=== PATIENT | male | born 2000 | race Hispanic/Latino ===

== ENCOUNTER 2022-02-22 19:41 | Emergency (ER) | payer OTHER ==
[~2022-02-22] VITALS: Ht 188 cm; Wt 79.4 kg
[2022-02-22 20:13] VITALS: BP 126/79
[2022-02-22] MEDS ORDERED: AMOX875T2 PO (20:28)
[2022-02-23] MEDS ORDERED: IBUP-2077 PO (22:55)
== END 2022-02-22 20:42 | disposition home or self-care (01) ==
LOC: EDH 19:41
DX: L02.214 Cutaneous abscess of groin (principal); I88.9 Nonspecific lymphadenitis, unspecified; F20.9 Schizophrenia, unspecified; F41.9 Anxiety disorder, unspecified

== ENCOUNTER 2022-02-23 21:21 | Emergency (ER) | payer OTHER ==
[~2022-02-23] VITALS: Ht 190.5 cm; Wt 79.4 kg
[~2022-02-23 21:21] MED LIST: AMOX875T2 PO
[2022-02-23 21:23] VITALS: BP 123/104
[2022-02-23] MEDS ORDERED: IBUP-2077 PO (22:55)
== END 2022-02-23 23:30 | disposition home or self-care (01) ==
LOC: EDH 21:21
DX: S42.402A Unspecified fracture of lower end of left humerus, initial encounter for closed fracture (principal); W01.0XXA Fall on same level from slipping, tripping and stumbling without subsequent striking against object, initial encounter; Y93.89 Activity, other specified; Y92.89 Other specified places as the place of occurrence of the external cause; Y99.8 Other external cause status
CPT/HCPCS: 29105; 73080

== ENCOUNTER 2023-09-12 10:31 | Emergency (ER) | payer OTHER ==
[~2023-09-12] VITALS: Ht 190.5 cm; Wt 88.5 kg
[~2023-09-12 10:31] MED LIST changes: +IBUP-2077 PO
[2023-09-12 12:00] LABS: RAPID GROUP A STREP negative (NEGATIVE)
[2023-09-12 12:05] LABS: SARS-CoV-2, RNA, NAAT NEGATIVE SARS CoV-2 (NEGATIVE)
[2023-09-12 12:11] LABS: INFLUENZA TYPE B Negative For Type B (NEGATIVE)
[2023-09-12 12:30] LABS: INFLUENZA TYPE A Positive For Type A (NEGATIVE)
[2023-09-12] MEDS ORDERED: BROM118S48 PO (12:38)
[2023-09-12] MEDS ORDERED: AZIT250T9 PO (12:38)
[2023-09-12] MEDS ORDERED: BENZ200C53 PO (12:38)
[2023-09-12] MEDS ORDERED: OSEL75 PO (12:38)
[2023-09-12 13:46] VITALS: BP 119/78; PULSE 92; RESP 20; O2SAT 99
== END 2023-09-12 13:49 | disposition home or self-care (01) ==
LOC: EDH 10:31
DX: J10.1 Influenza due to other identified influenza virus with other respiratory manifestations (principal); B34.9 Viral infection, unspecified; Z20.822 Contact with and (suspected) exposure to COVID-19; Z79.899 Other long term (current) drug therapy
CPT/HCPCS: 99283; 87635; 87880; 87804 ×2; C9803